=== PATIENT | male | born 2000 | race Caucasian/White ===

== ENCOUNTER 2024-08-31 21:17 | Emergency (ER) | payer BC ==
[2024-08-31] MEDS: Lidocaine 1% 5 ML VIAL INJECT ONE (22:00)
[2024-08-31] MEDS: Bacitracin/Neomycin/Polymyxin B Oint 0.9 GM U/D Packet TOP ONE (22:00)
== END 2024-08-31 22:00 | disposition home or self-care (01) ==
LOC: CC.ED 21:17
DX: S61.412A Laceration without foreign body of left hand, initial encounter (principal); W55.22XA Struck by cow, initial encounter
CPT/HCPCS: 12001; 73130-LT; 99283; A9270-GY; J2003